=== PATIENT | male | born 1945 | race Caucasian/White ===

== ENCOUNTER 2019-03-22 15:47 | Observation (INO) | payer MEDICARE, OTHER ==
[2019-03-22] MEDS ORDERED: SODIUM CHLORIDE 0.9% 1,000 ML IV STA (16:37)
[2019-03-22] MEDS ORDERED: MORPHINE SULFATE 4 MG/ML SYRINGE IV STA (16:37)
--- NOTE | 2019-03-22 16:38 | ED ---
Back Pain HPI - General Chief Complaint: Back Pain/Injury Stated Complaint: Lumbar/Abd Pain Time Seen by Provider: 03/22/19 15:55 Source: patient, EMS, RN notes reviewed, old records reviewed Limitations: no limitations - History of Present Illness Initial Comments: This is a 73-year-old male here for evaluation. Patient didn't stay for evaluation regards to develop flank pain back pain severe. History of elevated blood pressure. There was no psychotic content trauma. Patient uncomfortable, symptoms are less likely than episodic progressing into today. No pain in his l ower extremities no pain in his feet. MD Complaint: back pain, back injury -: days(s) Similar Symptoms Previously: No Place: home Radiation: none Severity: moderate Severity scale (1-10): 7 Quality: sharp, aching Consistency: constant, intermittent Improves With: none Worsens With: none Associated Symptoms: denies other symptoms - Related Data Home Medications Medication Instructions Recorded Confirmed No Known Home Medications 10/24/13 10/24/13 Allergies Allergy/AdvReac Type Severity Reaction Status Date / Time No Known Allergies Allergy Verified 10/24/13 10:25 Review of Systems ROS Statement: Those systems with pertinent positive or pertinent negative responses have been documented in the HPI. ROS Other: All systems not noted in ROS Statement are negative. Past Medical History Past Medical History: No Reported History History of Any Multi-Drug Resistant Organisms: None Reported Additional Past Surgical History / Comment(s): SINUS SURGERY,DEVIATED SEPT UM.LAPAROTOMY Past Anesthesia/Blood Transfusion Reactions: No Reported Reaction Past Psychological History: No Psychological Hx Reported Smoking Status: Current some day smoker Past Alcohol Use History: Rare Past Drug Use History: Marijuana - Past Family History Sister(s) Family Medical History: Cancer Father Family Medical History: Cancer General Exam Limitations: no limitations General appearance: alert, in no apparent distress, anxious Head exam: Present: atraumatic, normocephalic, normal inspection Eye exam: Present: normal appearance, PERRL, EOMI. Absent: scleral icterus, conjunctival injection, periorbital swelling ENT exam: Present: normal exam, mucous membranes moist Neck exam: Present: normal inspection. Absent: tenderness, meningismus, lymphadenopathy Respiratory exam: Present: normal lung sounds bilaterally. Absent: respiratory distress, wheezes, rales, rhonchi, stridor Cardiovascular Exam: Present: regular rate, normal rhythm, normal heart sounds. Absent: systolic murmur, diastolic murmur, rubs, gallop, clicks GI/Abdominal exam: Present: soft, normal bowel sounds. Absent: distended, tenderness, guarding, rebound, rigid Extremities exam: Present: normal inspection, full ROM, normal capillary refill. Absent: tenderness, pedal edema, joint swelling, calf tenderness Back exam: Present: normal inspection Neurological exam: Present: alert, oriented X3, CN II-XII intact Psychiatric exam: Present: normal affect, normal mood Skin exam: Present: warm, dry, intact, normal color. Absent: rash Course Vital Signs 03/22/19 03/22/19 03/22/19 16:00 16:51 19:01 Temperature 98.7 F Pulse Rate 89 78 88 Respiratory 18 18 18 Rate Blood Pressure 157/97 157/97 164/93 O2 Sat by Pulse 94 L 97 97 Oximetry Medical Decision Making - Lab Data Result diagrams: 03/22/19 16:03 03/22/19 16:03 Lab Results 03/22/19 03/22/19 03/22/19 Range/Units 16:03 16:03 16:03 WBC 12.8 H (3.8-10.6) k/uL RBC 4.76 (4.30-5.90) m/uL Hgb 14.3 (13.0-17.5) gm/dL Hct 43.2 (39.0-53.0) % MCV 90.8 (80.0-100.0) fL MCH 30.0 (25.0-35.0) pg MCHC 33.1 (31.0-37.0) g/dL RDW 12.6 (11.5-15.5) % Plt Count 213 (150-450) k/uL Neutrophils % 80 % Lymphocytes % 12 % Monocytes % 6 % Eosinophils % 1 % Basophils % 0 % Neutrophils # 10.2 H (1.3-7.7) k/uL Lymphocytes # 1.5 (1.0-4.8) k/uL Monocytes # 0.8 (0-1.0) k/uL Eosinophils # 0.1 (0-0.7) k/uL Basophils # 0.0 (0-0.2) k/uL Sodium 141 (137-145) mmol/L Potassium 4.5 (3.5-5.1) mmol/L Chloride 106 (98-107) mmol/L Carbon Dioxide 28 (22-30) mmol/L Anion Gap 7 mmol/L BUN 15 (9-20) mg/dL Creatinine 1.29 H (0.66-1.25) mg/dL Est GFR (CKD-EPI)AfAm 63 (>60 ml/min/1.73 sqM) Est GFR (CKD-EPI)NonAf 55 (>60 ml/min/1.73 sqM) Glucose 117 H (74-99) mg/dL Plasma Lactic Acid Manny 2.0 (0.7-2.0) mmol/L Calcium 9.8 (8.4-10.2) mg/dL Total Bilirubin 0.9 (0.2-1.3) mg/dL AST 24 (17-59) U/L ALT 22 (21-72) U/L Alkaline Phosphatase 102 (38-126) U/L Creatine Kinase 87 (55-170) U/L Troponin I (0.000-0.034) ng/mL Total Protein 7.4 (6.3-8.2) g/dL Albumin 4.3 (3.5-5.0) g/dL Amylase 76 (30-110) U/L Lipase 88 (23-300) U/L 03/22/19 Range/Units 16:03 WBC (3.8-10.6) k/uL RBC (4.30-5.90) m/uL Hgb (13.0-17.5) gm/dL Hct (39.0-53.0) % MCV (80.0-100.0) fL MCH (25.0-35.0) pg MCHC (31.0-37.0) g/dL RDW (11.5-15.5) % Plt Count (150-450) k/uL Neutrophils % % Lymphocytes % % Monocytes % % Eosinophils % % Basophils % % Neutrophils # (1.3-7.7) k/uL Lymphocytes # (1.0-4.8) k/uL Monocytes # (0-1.0) k/uL Eosinophils # (0-0.7) k/uL Basophils # (0-0.2) k/uL Sodium (137-145) mmol/L Potassium (3.5-5.1) mmol/L Chloride (98-107) mmol/L Carbon Dioxide (22-30) mmol/L Anion Gap mmol/L BUN (9-20) mg/dL Creatinine (0.66-1.25) mg/dL Est GFR (CKD-EPI)AfAm (>60 ml/min/1.73 sqM) Est GFR (CKD-EPI)NonAf (>60 ml/min/1.73 sqM) Glucose (74-99) mg/dL Plasma Lactic Acid Manny (0.7-2.0) mmol/L Calcium (8.4-10.2) mg/dL Total Bilirubin (0.2-1.3) mg/dL AST (17-59) U/L ALT (21-72) U/L Alkaline Phosphatase (38-126) U/L Creatine Kinase (55-170) U/L Troponin I <0.012 (0.000-0.034) ng/mL Total Protein (6.3-8.2) g/dL Albumin (3.5-5.0) g/dL Amylase (30-110) U/L Lipase (23-300) U/L Disposition Clinical Impression: Abdominal aortic ectasia, Abdominal pain Disposition: ADMITTED IP TO THIS [facility] Condition: Good Is patient prescribed a controlled substance at d/c from ED?: No Referrals: Rojelio Powell MD [Primary Care Provider] - 1-2 days
[2019-03-22 16:57] LABS: Basophils % (A) 0 %; Eosinophils # (A) 0.1 k/uL (0-0.7); Eosinophils % (A) 1 %; HCT 43.2 % (39.0-53.0); HGB 14.3 gm/dL (13.0-17.5); Lymphocytes # (A) 1.5 k/uL (1.0-4.8); Lymphocytes % (A) 12 %; MCHC 33.1 g/dL (31.0-37.0); MCV 90.8 fL (80.0-100.0); Mean Platelet Volume 6.9; Monocytes # (A) 0.8 k/uL (0-1.0); Monocytes % (A) 6 %; Neutrophils # (A) 10.2 k/uL (1.3-7.7); Neutrophils % (A) 80 %; Platelet Count 213 k/uL (150-450); RBC 4.76 m/uL (4.30-5.90); RDW 12.6 % (11.5-15.5); WBC 12.8 k/uL (3.8-10.6)
[2019-03-22 17:05] LABS: Albumin 4.3 g/dL (3.5-5.0); Calcium 9.8 mg/dL (8.4-10.2); Potassium 4.5 mmol/L (3.5-5.1); Total Bilirubin 0.9 mg/dL (0.2-1.3); Total Protein 7.4 g/dL (6.3-8.2)
--- NOTE | 2019-03-22 18:38 | CT ---
EXAMINATION TYPE: CT angio thor/abd pel aorta DATE OF EXAM: 03/22/2019 COMPARISON: None HISTORY: Lower back pain, constipation CT DLP: 1897.5 mGycm. Automated Exposure Control for Dose Reduction was Utilized. CONTRAST: CT scan of the thorax, abdomen and pelvis is performed with IV Contrast, patient injected with 80 mL of Isovue 370. FINDINGS: No intramural hematoma. No aortic dissection. No thoracic or abdominal aortic aneurysm. Fusiform ecta jose luis of the infrarenal abdominal aorta measuring 3.7 cm transverse by 3.6 cm AP dimension. There is ec centric noncalcified mural thrombus with apparent surface irregularity (series 501 image 133) which m ay be due to ulceration versus volume averaging. Scattered atheromatous calcifications of the aorta a nd imaged common iliac arteries. The celiac axis, superior mesenteric, and inferior mesenteric arteri es are patent. There are 2 right renal arteries and a single left renal artery, which are patent. CHEST: The lungs are clear without consolidation, pleural effusion, or pneumothorax. The heart is not enlarged. No pericardial effusion. Coronary artery calcifications are left coronary predominant. No mediastinal adenopathy. ABDOMEN: The liver, spleen, and adrenal glands are within normal limits given phase of contrast. Sple en is not enlarged. Subcentimeter splenic hilar splenules noted. Multiple calcified gallstones. Symme tric renal enhancement without hydronephrosis. Probable bilateral renal cysts. Prostate gland is enla rged. No dilated bowel. Small sliding-type hiatal hernia with adjacent surgical clips. Metallic artif act also present within the frederick hepatis. No dilated bowel or free air. Multiple colonic diverticula without mesenteric inflammation. Fat filled umbilical hernia with abdominal wall defect measuring 1. 2 cm in transverse dimension. Both inguinal canals are patulous and fat filled. Small right Bochdalek hernia. Bones: No aggressive osseous lesion. Findings of mid/lower thoracic diffuse skeletal hyperostosis. IMPRESSION: 1. No intramural hematoma or aortic dissection. Fusiform ectasia of the abdominal aorta with mural th rombus; there is apparent surface irregularity of the mural thrombus which may be due to volume avera ging or from plaque ulceration. 2. Incidental findings as above.
[2019-03-22] MEDS ORDERED: MORPHINE SULFATE 4 MG/ML SYRINGE IVP STA (18:56)
[2019-03-22] MEDS ORDERED: LABETALOL 5 MG/ML VIAL MDV IVP STA (19:09)
[2019-03-22] MEDS ORDERED: SODIUM CHLORIDE 0.9% 1,000 ML IV ONE (19:09)
[2019-03-22 19:18] LABS: Appearance,Urine Clear (Clear); Bilirubin,Urine Negative (Negative); Blood,Urine Moderate (Negative); Color,Urine Yellow; Glucose,Urine (UA) Negative (Negative); Ketones,Urine 1+ (Negative); Leukocyte Esterase,Urine Negative (Negative); Mucus,Urine Rare /hpf; Nitrite,Urine Negative (Negative); Protein,Urine Negative (Negative); RBC,Urine 132 /hpf (0-5); Specific Gravity,Urine 1.019 (1.001-1.035); Urobilinogen,Urine <2.0 mg/dL (<2.0); WBC,Urine 4 /hpf (0-5)
[2019-03-22] MEDS: MORPHINE SULFATE 4 MG/ML SYRINGE IVP PRN (23:38)
--- NOTE | 2019-03-23 05:13 | P.GSCN ---
History of Present Illness Consult date: 03/23/19 Reason for Consult: Aortic ectasia History of present illness: 73-year-old gentleman presented to the emergency department secondary to flank p ain which he states onset yesterday. Patient states it feels like a muscle tightness and almost like someone is squeezing his back muscles. A CT of the thorax and abdomen was obtained with contrast which demonstrated ectasia of his abdominal aorta with possible ulceration. I was called at that time by the emergency department and due to his continued pain he was admitted to the hospital. Since his admission to the hospital he has been getting warm compresses on his back which he states has helped with his discomfort. He has never had this pain before and has never been told he has an enlarged aorta. He denies any pain with ambulation in the lower extremities or at rest. He denies any fevers, chills, chest pain or shortness of breath. Review of Systems All systems: negative (what is mentioned in the HPI or past medical history) Past Medical History Past Medical History: No Reported History History of Any Multi-Drug Resistant Organisms: None Reported Additional Past Surgical History / Comment(s): SINUS SURGERY,DEVIATED SEPTUM.LAPAROTOMY Past Anesthesia/Blood Transfusion Reactions: No Reported Reaction Past Psychological History: No Psychological Hx Reported Smoking Status: Current some day smoker Past Alcohol Use History: Rare Past Drug Use History: Marijuana - Past Family History Sister(s) Family Medical History: Cancer Father Family Medical History: Cancer Medications and Allergies Home Medications Medication Instructions Recorded Confirmed Type No Known Home Medications 10/24/13 03/22/19 History Allergies Allergy/AdvReac Type Severity Reaction Status Date / Time No Known Allergies Allergy Verified 03/22/19 19:24 Surgical - Exam Vital Signs Temp Pulse Resp BP Pulse Ox 98.7 F 89 18 157/97 94 L 03/22/19 16:00 03/22/19 16:00 03/22/19 16:00 03/22/19 16:00 03/22/19 16:00 Palpable DP pulses bilaterally. No pulsatile abdominal mass. No tenderness to palpation at the lower back or paraspinal musculature. - General well developed, well nourished, no distress - Eyes PERRL, normal ocular movement - ENT normal pinna - Neck no masses - Respiratory normal expansion, clear to auscultation - Cardiovascular Rhythm: regular - Abdomen Abdomen: soft, non tender Hernia: none - Neurologic normal coordination, normal sensation - Musculoskeletal normal posture - Psychiatric oriented to time, oriented to person, oriented to place Results - Labs 03/22/19 16:03 03/22/19 16:03 Abnormal Lab Results - Last 24 Hours (Table) 03/22/19 03/22/19 03/22/19 Range/Units 16:03 16:03 19:04 WBC 12.8 H (3.8-10.6) k/uL Neutrophils # 10.2 H (1.3-7.7) k/uL Creatinine 1.29 H (0.66-1.25) mg/dL Glucose 117 H (74-99) mg/dL Urine Ketones 1+ H (Negative) Urine Blood Moderate H (Negative) Urine RBC 132 H (0-5) /hpf Urine Mucus Rare H (None) /hpf Diabetes panel 03/22/19 Range/Units 16:03 Sodium 141 (137-145) mmol/L Potassium 4.5 (3.5-5.1) mmol/L Chloride 106 (98-107) mmol/L Carbon Dioxide 28 (22-30) mmol/L BUN 15 (9-20) mg/dL Creatinine 1.29 H (0.66-1.25) mg/dL Glucose 117 H (74-99) mg/dL Calcium 9.8 (8.4-10.2) mg/dL AST 24 (17-59) U/L ALT 22 (21-72) U/L Alkaline Phosphatase 102 (38-126) U/L Total Protein 7.4 (6.3-8.2) g/dL Albumin 4.3 (3.5-5.0) g/dL Calcium panel 03/22/19 Range/Units 16:03 Calcium 9.8 (8.4-10.2) mg/dL Albumin 4.3 (3.5-5.0) g/dL Pituitary panel 03/22/19 Range/Units 16:03 Sodium 141 (137-145) mmol/L Potassium 4.5 (3.5-5.1) mmol/L Chloride 106 (98-107) mmol/L Carbon Dioxide 28 (22-30) mmol/L BUN 15 (9-20) mg/dL Creatinine 1.29 H (0.66-1.25) mg/dL Glucose 117 H (74-99) mg/dL Calcium 9.8 (8.4-10.2) mg/dL Adrenal panel 03/22/19 Range/Units 16:03 Sodium 141 (137-145) mmol/L Potassium 4.5 (3.5-5.1) mmol/L Chloride 106 (98-107) mmol/L Carbon Dioxide 28 (22-30) mmol/L BUN 15 (9-20) mg/dL Creatinine 1.29 H (0.66-1.25) mg/dL Glucose 117 H (74-99) mg/dL Calcium 9.8 (8.4-10.2) mg/dL Total Bilirubin 0.9 (0.2-1.3) mg/dL AST 24 (17-59) U/L ALT 22 (21-72) U/L Alkaline Phosphatase 102 (38-126) U/L Total Protein 7.4 (6.3-8.2) g/dL Albumin 4.3 (3.5-5.0) g/dL - Imaging CT scan - abdomen: image reviewed CT scan - chest: image reviewed Assessment and Plan Assessment: 1. Acute back pain likely due to musculoskeletal etiology. Unlikely secondary to aorta 2. Infrarenal aortic aneurysm with mural thrombus Plan: I discussed the CT with the patient in full detail. It is unlikely that his pain is due to the aortic aneurysm and more likely musculoskeletal in etiology. He did state his pain improved with warm compresses and upon my evaluation he stated the pain had moved up his back onto the other side. It appears that most of his discomfort is musculoskeletal but I do agree with continued monitoring of his blood pressure. If he continues to improve and have no continued pain then he may be discharged home with follow-up in the office for an abdominal ultrasound in the next couple weeks to further delineate the Mural thrombus and possible ulcerative plaque. I recommend aspirin as well as blood pressure control with systolics less than 150 ideally. If there are any questions or concerns please feel free to call me at any time. Thank you for allowing me to participate in your patient's care.
[2019-03-23] MEDS: MORPHINE SULFATE 4 MG/ML SYRINGE IVP PRN (08:03)
[2019-03-23] MEDS ORDERED: DOCUSATE 100 MG CAP PO PRN (12:03)
--- NOTE | 2019-03-23 12:05 | P.HPIM ---
History of Present Illness H&P Date: 03/23/19 Chief Complaint: Back pain Mr. Hester is a 73-year-old male with no significant past medical history coming into the hospital with a chief complaint of right-sided low back pain. Patient states that he started to have pain in the lower back on the right side for the past 3 days, aggravated by movement. He did not take any medications at home, the pain was progressively getting worse. Pain was mostly in the right side of the low back, nonradiating. Patient denied having any injuries to the back. Denies lifting any heavy weights. Patient denies having any tingling or numbness in his feet. No loss of control of bowel or bladder. Patient doesn't have any medical history severe and does not take any medications on a regular basis. Patient also complains some abdominal discomfort and he states his last bowel movement was 4 days.. He tried to take baking soda at home but did not have much relief. In the emergency room patient had CT angiogram of the thoracic and abdominal aorta showing fusiform ectasia of the abdominal aorta with mural thrombus, there is a pattern surface irregularity of the mural thrombus which may be due to volume averaging or from plaque ulceration which is an incidental finding. So the patient was admitted with CT surgery consult. Review of Systems REVIEW OF SYSTEMS: PSYCH: No anxiety or depression NEURO:No c/o weakness of the extremties, No facial droop, No speech abnormalities. VASCULAR: Peripheral nervous system within the normal limits no edema HEMATOLOGIC: No history of easy bleeding and bruising . No recent infections . RESPIRATORY: No cough, No SOB, No chest discomfort. IMMUNE: No infections INTEGUMENT: no rashes OPHTHALMOLOGIC: No blurry vision and no eye discharge : No dysuria or hematuria CARDIAC: No chest pain , shortness of breath , paroxysmal nocturnal dyspnea MUSCULOSKELETAL : As per HPI GI: Abdominal discomfort. Constipation for 4 days. Past Medical History Past Medical History: No Reported History History of Any Multi-Drug Resistant Organisms: None Reported Additional Past Surgical History / Comment(s): SINUS SURGERY,DEVIATED SEPTUM.LAPAROTOMY Past Anesthesia/Blood Transfusion Reactions: No Reported Reaction Past Psychological History: No Psychological Hx Reported Smoking Status: Current some day smoker Past Alcohol Use History: Rare Past Drug Use History: Marijuana - Past Family History Sister(s) Family Medical History: Cancer Father Family Medical History: Cancer Medications and Allergies Home Medications Medication Instructions Recorded Confirmed Type No Known Home Medications 10/24/13 03/22/19 History Allergies Allergy/AdvReac Type Severity Reaction Status Date / Time No Known Allergies Allergy Verified 03/22/19 19:24 Physical Exam Vitals: Vital Signs Temp Pulse Pulse Resp BP BP BP 03/23/19 08:28 133/69 03/23/19 07:33 98.6 F 70 14 156/75 142/79 03/23/19 02:23 98.3 F 70 18 143/74 03/22/19 20:24 98.2 F 84 18 159/80 03/22/19 19:52 98.7 F 77 18 142/84 03/22/19 19:32 77 18 142/84 03/22/19 19:01 88 18 164/93 03/22/19 16:51 78 18 157/97 03/22/19 16:00 98.7 F 89 18 157/97 Pulse Ox 03/23/19 08:28 03/23/19 07:33 03/23/19 02:23 96 03/22/19 20:24 94 L 03/22/19 19:52 97 03/22/19 19:32 03/22/19 19:01 97 03/22/19 16:51 97 03/22/19 16:00 94 L Intake and Output 03/22/19 03/23/19 03/23/19 22:59 06:59 14:59 Intake Total 480 Balance 480 Intake: Oral 480 Other: Voiding Method Toilet Toilet # Voids 1 2 Weight 85.275 kg GEN. APPEARANCE: alert, in no apparent distress HEAD EXAM: atraumatic, normocephalic, normal inspection EYE EXAM: normal appearance, PERRL, EOMI. no pallor, no icterus ENT EXAM: normal exam, mucous membranes moist NECK EXAM: normal inspection. no thyromegaly or lymphadenopathy RESPIRATORY EXAM: normal lung sounds bilaterally. No wheezing or crackles CARDIOVASCULAR EXAM: regular rate, normal rhythm, normal heart sounds. GI/ABDOMINAL EXAM: soft, normal bowel sounds. no tenderness guarding, rebound or rigidity EXTREMITIES EXAM: no pedal edema NEUROLOGICAL EXAM: alert, oriented X3, no focal deficits PSYCHIATRIC EXAM: normal affect, normal mood SKIN EXAM: no rash Results CBC & Chem 7: 03/22/19 16:03 03/22/19 16:03 Labs: Abnormal Lab Results - Last 24 Hours (Table) 03/22/19 03/22/19 03/22/19 Range/Units 16:03 16:03 19:04 WBC 12.8 H (3.8-10.6) k/uL Neutrophils # 10.2 H (1.3-7.7) k/uL Creatinine 1.29 H (0.66-1.25) mg/dL Glucose 117 H (74-99) mg/dL Urine Ketones 1+ H (Negative) Urine Blood Moderate H (Negative) Urine RBC 132 H (0-5) /hpf Urine Mucus Rare H (None) /hpf Assessment and Plan Assessment: ASSESSMENT Acute low back pain - intractable Infrarenal aortic aneurysm with mural thrombus Hypertension -new onset Acute kidney injury Constipation Plan: Patient has been getting morphine for the low back pain and his pain is much better. CT surgery has evaluated the patient and suggested him to be started on aspirin daily. And to keep his blood pressure systolic below 150. Patient will be given laxatives for constipation. Patient will be started on chlorthalidone 25 mg, aspirin 81 mg has been initiated. Further recommendations to follow depending on the progress of the patient.
[2019-03-23] MEDS: ASPIRIN 81 MG PO SCH (15:10)
[2019-03-23] MEDS: CHLORTHALIDONE 25 MG TAB PO SCH (15:10)
[2019-03-23 19:12] VITALS: RESP 16
[2019-03-24 07:18] LABS: Calcium 9.3 mg/dL (8.4-10.2); Potassium 4.1 mmol/L (3.5-5.1)
[2019-03-24 07:32] VITALS: BP 144/72; PULSE 67; TEMP 97.8
[2019-03-24] MEDS: CHLORTHALIDONE 25 MG TAB PO SCH (08:31)
[2019-03-24] MEDS: ASPIRIN 81 MG PO SCH (08:31)
--- NOTE | 2019-03-24 11:46 | P.PN ---
Subjective Progress Note Date: 03/24/19 The patient is a pleasant 73-year-old gentleman who presented to the emergency department secondary to flank pain which likely is musculoskeletal in nature. CT of the thorax and abdomen was obtained yesterday, that demonstrated ectasia of the abdominal aorta with a possible ulceration. Dr. Mccarty had seen patient yesterday reviewed and discussed the results of the computed tomography scan. Patient has been seen and evaluated, denies any chest pain or shortness of breath. Blood pressures have been stable through the night. Flank pain has improved. Objective - Vital Signs Vital signs: Vital Signs Temp 97.8 F 03/24/19 07:00 Pulse 67 03/24/19 07:00 Resp 16 03/24/19 07:00 BP 144/72 03/24/19 07:00 Pulse Ox 95 03/24/19 07:00 Intake & Output 03/23/19 03/24/19 03/24/19 18:59 06:59 18:59 Intake Total 480 20 Balance 480 20 Intake: Oral 480 20 Other: Voiding Method Toilet # Voids 2 2 - Exam General appearance: The patient is alert, oriented, in no acute distress. HET: Head is normocephalic and atraumatic. Pupils are equal and reactive. Neck: Supple without lymphadenopathy. Trachea midline. Heart: S1 S2. Regular rate and rhythm. Lungs: No crackles or wheezes are heard. Abdomen: Soft, nontender, nondistended with bowel sounds. No palpable organomegaly or masses. Extremities: Normal skin color and turgor. No cyanosis, rash, ulceration, clubbing, or edema. Radial and pedal pulses are 2/4 bilaterally. Neurological: No focal deficits. Strength and sensation are grossly intact. - Labs CBC & Chem 7: 03/22/19 16:03 03/24/19 06:08 Assessment and Plan Assessment: Acute back pain likely due to musculoskeletal etiology and unlikely secondary to aorta Infrarenal aortic aneurysm with mural thrombosis Plan: Patient was discussed with Dr. Mccarty. Blood pressures have remained stable with systolics less than 150. Patient may be discharged with daily aspirin and discussed importance of blood pressure control with maintaining a systolic less than 150. Patient to follow-up with Dr. Mccarty in the office in 1-2 weeks and will have a outpatient abdominal ultrasound. The above dictated assessment and findings were discussed with Dr. Mccarty. The impression and plan of care have been directed as dictated.
--- NOTE | 2019-03-24 17:44 | P.DS ---
Providers Date of admission: 03/22/19 19:09 Expected date of discharge: 03/24/19 Attending physician: Cecilia Norman Consults: 03/22/19 19:09 Consult Physician Routine Consulting Provider: Andrés Mccarty Consult Reason/Comments: known Do you want consulting provider notified?: Yes Primary care physician: Rojelio Powell MD Hospital Course: Mr. Hester is a 73-year-old male with no significant past medical history coming into the hospital with a chief complaint of right-sided low back pain. Patient states that he started to have pain in the lower back on the right side for the past 3 days, aggravated by movement. He did not take any medications at home, the pain was progressively getting worse. Pain was mostly in the right side of the low back, nonradiating. Patient denied having any injuries to the back. Denies lifting any heavy weights. Patient denies having any tingling or numbness in his feet. No loss of control of bowel or bladder. Patient doesn't have any medical history severe and does not take any medications on a regular basis. Patient also complains some abdominal discomfort and he states his last bowel movement was 4 days.. He tried to take baking soda at home but did not have much relief. In the emergency room patient had CT angiogram of the thoracic and abdominal aorta showing fusiform ectasia of the abdominal aorta with mural thrombus, there is a pattern surface irregularity of the mural thrombus which may be due to volume averaging or from plaque ulceration which is an incidental finding. So the patient was admitted with CT surgery consult. Hospital course - Dr. Mccarty had seen patient yesterday reviewed and discussed the results of the computed tomography scan. Patient denies any chest pain or shortness of breath. Blood pressures have been stable through the night. Flank pain has improved. He has been cleared by CT surgery for discharge. DISCHARGE DIAGNOSIS Acute low back pain - intractable Infrarenal aortic aneurysm with mural thrombus Hypertension -new onset Acute kidney injury Constipation FOLLOW UP : Patient discharged ON daily aspirin and discussed importance of blood pressure control with maintaining a systolic less than 150. Patient to follow-up with Dr. Mccarty in the office in 1-2 weeks and will have a outpatient abdominal ultrasound. Patient Condition at Discharge: Good Plan - Discharge Summary Discharge Rx Participant: No New Discharge Prescriptions: New Aspirin 81 mg PO DAILY 30 Days #30 chew Chlorthalidone [Hygroton] 25 mg PO DAILY 30 Days #30 tab Discharge Medication List Aspirin 81 mg PO DAILY 30 Days #30 chew 03/24/19 [Rx] Chlorthalidone [Hygroton] 25 mg PO DAILY 30 Days #30 tab 03/24/19 [Rx] Follow up Appointment(s)/Referral(s): Rojelio Powell MD [Primary Care Provider] - 03/26/19 10:15 am Andrés Mccarty DO [STAFF PHYSICIAN] - 04/22/19 3:15 pm (1-2 weeks for abdominal ultrasound. Office will mail paperwork to be filled out and bring to appointment. bring picture ID and insurance information) Patient Instructions/Handouts: Nonruptured Abdominal Aortic Aneurysm (DC) Activity/Diet/Wound Care/Special Instructions: activity limited until follow up follow up with primary care provider upon discharge follow up with Dr. Mccarty this week continue current diet Discharge Disposition: HOME SELF-CARE
== END 2019-03-24 12:17 | disposition home or self-care (01) ==
LOC: EC 15:47 → 4SSUR 19:09
PROVIDERS: ADMIT Hospitalist; ATTEND Hospitalist
DX: M54.5 Low back pain (principal); I71.4 Abdominal aortic aneurysm, without rupture; I74.09 Other arterial embolism and thrombosis of abdominal aorta; I10 Essential (primary) hypertension; N17.9 Acute kidney failure, unspecified; K59.00 Constipation, unspecified; F17.200 Nicotine dependence, unspecified, uncomplicated; Z98.890 Other specified postprocedural states; Z80.9 Family history of malignant neoplasm, unspecified
CPT/HCPCS: 96376 ×3; 96361 ×3; 96374; 96375; 99285; 36415; 93005; 80053; 80048; 82150; 82550; 83605; 83690; 84484; 85025; 81001; 71275; 74174; G0378 ×3; J2270 ×2; Q9967

== ENCOUNTER → 2024-01-11 | Outpatient (CLI) | payer MEDICARE ==
--- NOTE | 2024-01-12 10:58 | PE ---
EXAMINATION TYPE: PET CT fusion skull to thigh DATE OF EXAM: 01/11/2024 CLINICAL INDICATION:Male, 78 years old with history of C61 PROS CANCER; TECHNIQUE: Following the intravenous administration of 5.18 mCi of Ga-68 Illuccix (PSMA), whole bod y images are performed from the skull base to the midthigh. Images are reviewed on the computer in t he coronal, axial, and sagittal planes. Reconstructed rotating images are created on independent wor kstation and reviewed on the computer. A non-contrast CT is performed in conjunction with the PET s can. CT DLP: 787 mGycm, Automated exposure control for dose reduction was used. COMPARISON: CT 03/22/2019, PET/CT None, MRI: None FINDINGS: Mediastinal SUV mean is 1.5. Hepatic parenchyma SUV mean is 5.1. SKULL BASE AND NECK: No suspicious radiotracer activity. CHEST, MEDIASTINUM, AND HILAR REGION: No suspicious radiotracer activity. ABDOMEN AND PELVIS: Prostate gland is enlarged measuring up to 4.6 cm in transverse dimension. Intense radiotracer uptake within the prostate gland more pronounced near the apex max SUV 0.3, 0.6 which is difficult to local ize with adjacent bladder. Patchy uptake near the mesorectal fascia no enlarged lymph nodes within th e visualized. MUSCULOSKELETAL STRUCTURES: No suspicious radiotracer activity. OTHER CT: Bilaterally aphakia. Atherosclerosis of the arterial vasculature including the carotid bifu rcations and coronary arteries. Mild gynecomastia changes. Cholelithiasis. Left renal probable cyst. Infrarenal abdominal aortic aneurysm measuring up to 5.3 x 5.5 cm. Colonic diverticulosis. Fatty ingu inal changes bilaterally. Clips in the gastroesophageal junction. IMPRESSION: 1. Somewhat diffuse uptake with the prostate gland with suspected underlying mass. Correlate with pr ostate MRI and tissue sampling. No definitive evidence for metastatic disease at this time 2. Infrarenal abdominal aortic aneurysm measuring up to 5.3 x 5.5 cm. Vascular surgical consultation recommended. [facility], , 01/12/2024 10:56 AM
== END | disposition home or self-care (01) ==
LOC: RADPETMAIN 11:59
PROVIDERS: ATTEND Urology
DX: C61 Malignant neoplasm of prostate (principal); I71.43 Infrarenal abdominal aortic aneurysm, without rupture; K57.30 Diverticulosis of large intestine without perforation or abscess without bleeding; K80.20 Calculus of gallbladder without cholecystitis without obstruction; N62 Hypertrophy of breast; H27.03 Aphakia, bilateral
CPT/HCPCS: 78815; A9596

== ENCOUNTER → 2024-02-25 | Outpatient (CLI) | payer MEDICARE ==
--- NOTE | 2024-02-26 13:56 | MR ---
EXAMINATION TYPE: MR Prostate wo/w con DATE OF EXAM: 02/25/2024 7:53 AM COMPARISON: None. CLINICAL INDICATION: Male, 78 years old with history of C61 MALIGNANT NEOPLASM OF PROSTATE; Prostate cancer. TECHNIQUE: Multi-planar, multi-sequence imaging of the pelvis is performed prior to and following the uncomplicated administration of bolus intravenous gadolinium. IV Contrast: 9 mL Gadobutrol Interpretive Criteria: PI-RADS v2.1 SERUM PSA: 24 = 21.80 8--18 = 5.66 SURGICAL PATHOLOGY: No data available. FINDINGS: Prostatic dimensions: 4.4 x 5.6 x 4.2 cm. Ellipsoid Volume:54.19 (PSA density=0.40 ng/mL/mL) CENTRAL GLAND (Central and Transition Zones/CZ+TZ): Right DWI lesion lower ADC signal in the anterior gland crossing midline near the mid gland/base ther e is arterial enhancement of this region. (PI-RADS 5) PERIPHERAL ZONE (PZ): Bilateral linear, indistinct wedgelike areas of low ADC, and low T2 signal, No evidence of masslike a bnormality, or localized perfusional hypervascularity, to further suggest a focus of clinically signi ficant prostate cancer. (PI-RADS 2) SEMINAL VESICLES (SV): Symmetric and unremarkable. PERIPROSTATIC TISSUES: Unremarkable. LYMPH NODES: No enlarged pelvic lymph node. REMAINING PELVIS: Bladder wall is within normal limits given distention. No abnormal free or organized intrapelvic fluid collection. No pathologic bowel dilation or mural thickening. Colonic diverticula are present. There is inflammat ion changes around the sigmoid colon. No hernia visualized OSSEOUS STRUCTURES: No suspicious osseous abnormality. IMPRESSION: 1. PI-RADS 5 lesion with somewhat ill-defined higher DWI signal lesion in the anterior central gland involving the mid gland/base. Tissue sampling recommended for confirmation. 2. BPH, estimated gland volume 54.19 mL. 3. No suspicious osseous lesion. No lymphadenopathy. No evidence of prostate adenocarcinoma involvin g the periprostatic tissues 4. Evidence for sigmoid colon acute diverticulitis. Correlate with patient history. Evaluation CT ab domen pelvis is recommended. [facility], , 02/26/2024 1:54 PM
== END | disposition home or self-care (01) ==
LOC: RADMRIMAIN 06:28
PROVIDERS: ATTEND Radiology Radiation Oncology
DX: C61 Malignant neoplasm of prostate (principal); K57.32 Diverticulitis of large intestine without perforation or abscess without bleeding; N40.0 Benign prostatic hyperplasia without lower urinary tract symptoms; Z85.46 Personal history of malignant neoplasm of prostate
CPT/HCPCS: 72197; A9585

== ENCOUNTER → 2024-03-03 | Outpatient (CLI) | payer MEDICARE ==
[2024-03-03 19:09] LABS: Basophils # (A) 0.07 X 10*3/uL (0.00-0.10); Basophils % (A) 0.8 %; Eosinophils # (A) 0.25 X 10*3/uL (0.04-0.35); Eosinophils % (A) 2.9 %; HCT 39.5 % (39.6-50.0); HGB 13.2 g/dL (13.0-17.0); Lymphocytes # (A) 2.01 X 10*3/uL (0.90-5.00); Lymphocytes % (A) 23.5 %; MCH 29.7 pg (27.0-32.0); MCHC 33.4 g/dL (32.0-37.0); Mean Platelet Volume 9.9 FL (9.5-12.2); Monocytes # (A) 0.82 X 10*3/uL (0.20-1.00); Monocytes % (A) 9.6 %; NRBC Per 100 WBC 0 X 10*3/uL (0.00-0.01); Neutrophils # (A) 5.39 X 10*3/uL (1.80-7.70); Neutrophils % (A) 62.8 %; Platelet Count 224 X 10*3/uL (140-440); RBC 4.44 X 10*6/uL (4.40-5.60); RDW 12.7 % (11.5-14.5); WBC 8.57 X 10*3/uL (4.50-10.00)
[2024-03-03 20:41] LABS: BUN/Creat Ratio 13.43 Ratio (12.00-20.00); Blood Urea Nitrogen 18.8 mg/dL (9.0-27.0); Calcium 9.7 mg/dL (8.7-10.3); Carbon Dioxide 30.5 mmol/L (21.6-31.8); Chloride 101 mmol/L (96-109); Glucose 86 mg/dL (70-110); Potassium 3.9 mmol/L (3.5-5.5); Sodium 141 mmol/L (135-145)
== END | disposition home or self-care (01) ==
LOC: LABPAT 12:06
PROVIDERS: ATTEND Urology
DX: Z01.818 Encounter for other preprocedural examination (principal); C61 Malignant neoplasm of prostate
CPT/HCPCS: 80048; 85025

== ENCOUNTER 2024-03-04 12:18 | Day surgery (SDC) | payer MEDICARE ==
[2024-03-03 14:03] VITALS: BMI 27.1
--- NOTE | 2024-03-04 12:27 | P.HPIHPCON ---
History of Present Illness H&P Date: 03/04/24 Chief Complaint: Prostate cancer This is a 78-year-old male with history of [place] 7(4+3)prostate cancer. He elected to proceed with radiation therapy. Option for SpaceOAR gel placement was discussed with him, risk of bleeding, infection, rectal perforation was discussed. Discussed with him the rationale of doing this was to reduce the rectal toxicity, discussed potential of developing toxicity even with SpaceOAR gel placement Consent for Procedure: I have explained the operation/procedure to the patient, including the risks, benefits, side effects, alternative therapies (including not receiving the proposed treatment or service), the likelihood of the patient achieving his/her goals, and potential recuperation problems for the procedure/sedation/analgesia, as well as any blood products, if indicated. I also explained to the patient the risks, benefits and side effects of the alternatives, as well as the risks related to not receiving the proposed procedure, care, treatment, or services. Past Medical History Past Medical History: Cancer, Hypertension, Prostate Disorder Additional Past Medical History / Comment(s): PROSTATE CANCER History of Any Multi-Drug Resistant Organisms: None Reported Additional Past Surgical History / Comment(s): SINUS SURGERY,DEVIATED SEPTUM.LAPAROTOMY, LEFT CATARACT, COLONOSCOPY, Past Anesthesia/Blood Transfusion Reactions: No Reported Reaction Smoking Status: Never smoker - Past Family History Sister(s) Family Medical History: Cancer Father Family Medical History: Cancer Medications and Allergies Home Medications Medication Instructions Recorded Confirmed Type Aspirin 81 mg PO DAILY 30 Days #30 chew 03/24/19 03/03/24 Rx Chlorthalidone [Hygroton] 25 mg PO DAILY 30 Days #30 tab 03/24/19 03/03/24 Rx Tamsulosin [Flomax] 0.4 mg PO DAILY 03/03/24 03/03/24 History Allergies Allergy/AdvReac Type Severity Reaction Status Date / Time No Known Allergies Allergy Verified 03/03/24 13:54 Surgical - Exam - General no distress, no pain - Eyes normal ocular movement, no pale - ENT normal nares, normal mucosa - Respiratory normal expansion, normal respiratory effort Assessment and Plan Assessment: OR for SpaceOAR gel placement
[2024-03-04] MEDS: IV FLUID CONTINUATION 1,000 ML IV ONE ×2 (13:21→14:49)
[2024-03-04 13:33] VITALS: TEMP 97.4
[2024-03-04] MEDS: LACTATED RINGERS 1,000 ML BAG IV STA (13:36)
[2024-03-04] MEDS ORDERED: PROPOFOL 10 MG/ML 20 ML VIAL IV ONE (14:20)
[2024-03-04] MEDS ORDERED: MIDAZOLAM 2 MG/2 ML VIAL ONE (14:20)
[2024-03-04] MEDS ORDERED: fentaNYL (PF) 50 MCG/ML 2 ML AMP ONE (14:20)
[2024-03-04] MEDS ORDERED: KETAMINE HCL IN 0.9 % NACL 50 MG/5 ML SYRINGE ONE (14:20)
[2024-03-04] MEDS ORDERED: LIDOCAINE 1% INJ 10MG/ML (20 ML MDV) ONE (14:20)
[2024-03-04] MEDS: LIDOCAINE 2% INJ 20 MG/ML SQ ONE ×2 (14:21)
--- NOTE | 2024-03-04 14:57 | P.OP ---
Date of Procedure: 03/04/24 Preoperative Diagnosis: Prostate cancer Postoperative Diagnosis: Same Procedure(s) Performed: SpaceOAR gel placement Implants: SpaceOAR gel Anesthesia: MAC Surgeon: Derrell Strickland Estimated Blood Loss (ml): 5 Pathology: none sent Condition: stable Disposition: PACU Indications for Procedure: This is a 78-year-old male with history of [place] 7(4+3)prostate cancer. He elected to proceed with radiation therapy. Option for SpaceOAR gel placement was discussed with him, risk of bleeding, infection, rectal perforation was discussed. Discussed with him the rationale of doing this was to reduce the rectal toxicity, discussed potential of developing toxicity even with SpaceOAR gel placement Description of Procedure: The patient was taken to the operating room and placed in the dorsolithotomy position, with his legs supported in [place] stirrups. The external genitalia was prepped and draped sterilely. The transrectal ultrasound probe was placed intrarectally. The prostate was imaged. The probe was then placed within the stabilizing stand. A spinal needle was advanced under ultrasonic guidance to the level of the urogenital diaphragm, and lidocaine was used to infiltrate the tissues as the needle was withdrawn. Next, the SpaceOAR needle was passed through the midline of the perineum, 1-2 cm anterior to the anal opening. The needle was slowly advanced under ultrasonic guidance until the needle tip was located within the fat plane between the prostate and rectum, at the level of the mid prostate gland. The needle was confirmed to be midline on the axial imaging. A small amount of normal saline was injected for hydrodissection. Next, the SpaceOAR components were mixed and loaded into the Y connector per protocol. The Y connector was then connected to the needle, and the components were injected slowly over a course of approximately 10 seconds. A total of 10 ml was injected. Significant distance was created between the prostate and rectum, as desired. It should be noted that at no point was there any concern of rectal perforation. The needle was withdrawn, as well as the transrectal ultrasound probe, and the procedure was terminated. The patient tolerated the procedure well and was taken to the recovery room in stable condition
[2024-03-04 15:12] VITALS: RESP 17
[2024-03-04 15:18] VITALS: BP 123/72; PULSE 80
== END 2024-03-04 15:36 | disposition home or self-care (01) ==
LOC: OR 12:18
PROVIDERS: ATTEND Urology
DX: C61 Malignant neoplasm of prostate (principal); I10 Essential (primary) hypertension; Z79.899 Other long term (current) drug therapy; Z98.890 Other specified postprocedural states; Z98.42 Cataract extraction status, left eye
CPT/HCPCS: 55874; C1889; J2250; J2003 ×2; J3010; J2704